=== PATIENT | male | born 1955 | race African-American/Black ===

== ENCOUNTER 2023-10-27 06:20 | Emergency (ER) | payer OTHER ==
[~2023-10-27] VITALS: Ht 172.7 cm; Wt 80.0 kg
[2023-10-27 06:25] VITALS: O2SAT 99
[2023-10-27 07:11] LABS: BASOPHILS % 0.4 % (0.0-2.0); EOSINOPHILS % 1.6 % (0.0-5.0); HEMATOCRIT. 41.5 % (42.0-52.0); HEMOGLOBIN. 13.8 g/dL (14.0-18.0); LYMPHOCYTES % 30.2 % (20.0-50.0); MEAN CORPUSCULAR HEMOGLOBIN 31.9 pg (28.0-32.0); MEAN CORPUSCULAR HGB CONC 33.3 g/dL (31.0-37.0); MEAN CORPUSCULAR VOLUME 95.9 fL (80.0-94.0); MEAN PLATELET VOLUME 9.5 fl (7.4-10.4); MONOCYTES % 5.5 % (2.0-8.0); NEUTROPHILS % 62.3 % (40.0-76.0); PLATELET 208 x1000/uL (130-400); RED BLOOD CELL COUNT 4.33 mill/uL (4.7-6.1); RED CELL DISTRIBUTION WIDTH 14.2 % (11.6-14.6); WHITE BLOOD COUNT 4.8 x1000/uL (4.5-11.0)
[2023-10-27 07:19] LABS: CHLORIDE 110 mEq/L (98-107); POTASSIUM 4.1 mEq/L (3.5-5.1); SODIUM 142 mEq/L (136-145)
[2023-10-27 07:20] LABS: CALCIUM 9.3 mg/dL (8.7-10.4); CARBON DIOXIDE 25 mEq/L (21-32)
[2023-10-27 07:25] LABS: GLUCOSE 111 mg/dL (70-105); UREA NITROGEN BLOOD 15 mg/dL (9-23)
[2023-10-27 07:26] LABS: TROPONIN I HIGH SENSITIVITY < 4 ng/L (3.0-53)
[2023-10-27] MEDS ORDERED: LIDO700A30 TP (08:29)
[2023-10-27] MEDS ORDERED: NAPR-679 MT (08:29)
[2023-10-27] MEDS: LIDOCAINE 5% PATCH TOP SCH (09:00)
[2023-10-27] MEDS: DIAZEPAM 5 MG TABLET PO NR (09:10)
[2023-10-27] MEDS: KETOROLAC 30MG/ML VIAL IM NR (09:10)
[2023-10-27 09:21] VITALS: BP 132/87; PULSE 82; RESP 18; TEMP 98.3
[2023-10-27 09:49] LABS: TROPONIN I HIGH SENSITIVITY 5 ng/L (3.0-53)
== END 2023-10-27 09:23 | disposition home or self-care (01) ==
LOC: ER 06:51
DX: R07.9 Chest pain, unspecified (principal); M25.512 Pain in left shoulder; I10 Essential (primary) hypertension; Z88.8 Allergy status to other drugs, medicaments and biological substances; V98.8XXA Other specified transport accidents, initial encounter; Y93.89 Activity, other specified; Y92.89 Other specified places as the place of occurrence of the external cause; Y99.8 Other external cause status
CPT/HCPCS: 99284; 71045; 80048; 85025; 84484; 36415; 73030; 73610; 96372; J1885